=== PATIENT | female | born 1970 | race Two or more races ===

== ENCOUNTER 2020-12-12 08:45 | Outpatient (CLI) | payer OTHER | END 2020-12-12 09:00 | disposition home or self-care (01) | LOC: SONOGRAMA 08:45 → RX STUDY 10:00 | PROVIDERS: ATTEND Obstetrics & Gynecology Gynecology | DX: N60.11 Diffuse cystic mastopathy of right breast (principal); N60.12 Diffuse cystic mastopathy of left breast; E66.3 Overweight; Z80.0 Family history of malignant neoplasm of digestive organs; N92.0 Excessive and frequent menstruation with regular cycle; N84.0 Polyp of corpus uteri ==